=== PATIENT | male | born 1975 | race Caucasian/White ===

== ENCOUNTER 2021-10-25 01:46 | Emergency (ER) | payer MEDICARE ==
[2021-10-25] MEDS ORDERED: ONDANSETRON ODT4 MG PO (05:31)
[2021-10-25] MEDS ORDERED: PREDNISONE 20MG20 MG PO (05:31)
[2021-10-25] MEDS ORDERED: AZITHROMYCIN250 MG PO (05:31)
[2021-10-25] MEDS ORDERED: PROMETHAZINE/C120 ML PO (05:32)
[2021-10-25] MEDS ORDERED: VENTOLIN HFA IN18 GM INH (05:35)
== END 2021-10-25 05:54 | disposition home or self-care (01) ==
LOC: FER 01:46
DX: U07.1 COVID-19 (principal); Z28.310 Unvaccinated for COVID-19
CPT/HCPCS: 71046; 96372; J1100; J2405